=== PATIENT | female | born 1970 | race Caucasian/White ===

== ENCOUNTER 2018-04-19 20:27 | Emergency (ER) | payer OTHER ==
[2018-04-19 21:29] VITALS: RESP 18; TEMP 98.1; O2SAT 98
[2018-04-19 22:30] VITALS: BP 131/78; PULSE 70
== END 2018-04-19 22:10 | disposition home or self-care (01) | DRG 556 ==
LOC: ED 20:27
DX: M25.562 Pain in left knee (principal); S50.811A Abrasion of right forearm, initial encounter; V03.90XA Pedestrian on foot injured in collision with car, pick-up truck or van, unspecified whether traffic or nontraffic accident, initial encounter
CPT/HCPCS: 73562; 99282; 99283